=== PATIENT | female | born 1955 ===

== ENCOUNTER 2025-01-18 11:30 | Inpatient (IN) | payer OTHER ==
[~2025-01-18] VITALS: Ht 157.5 cm; Wt 76.2 kg
[2025-01-18] MEDS ORDERED: SYNTHROID50 MCG PO (13:23)
[2025-01-18] MEDS ORDERED: SIMVASTATIN5 MG (13:24)
[2025-01-18] MEDS ORDERED: NEURONTIN600 M1 PO (13:24)
[2025-01-18] MEDS ORDERED: KLONOPIN (13:25)
[2025-01-18] MEDS ORDERED: PROTONIX40 MG PO (13:25)
[2025-01-18] MEDS ORDERED: ABATINEX680 MG PO (13:25)
[2025-01-18 13:30] VITALS: BP 128/83
[2025-01-23] MEDS ORDERED: BUPIVACAINE HCL/MPF 0.5% 30ML VIAL ONE (10:32)
[2025-01-23] MEDS ORDERED: LIDOCAINE HCL 1%/EPINEPHRINE 20ML VIAL IJ ONE ×2 (10:32→12:30)
[2025-01-23] MEDS ORDERED: CEFTRIAXONE SODIUM 2,000 MG VIAL ONE (10:32)
[2025-01-23] MEDS ORDERED: METRONIDAZOLE/SODIUM CHLORIDE 500 MG/100 ML PIGGYBACK IV ONE ×3 (10:32→17:12)
[2025-01-23] MEDS ORDERED: ONDANSETRON HCL 2 MG/ML VIAL IV PRN (11:45)
[2025-01-23] MEDS ORDERED: 0.9 % SODIUM CHLORIDE 1,000 ML IV SCH (11:45)
[2025-01-23] MEDS ORDERED: OxyCODONE HCL 5 MG TABLET (ROXICODONE) PO PRN (11:45)
[2025-01-23] MEDS ORDERED: MORPHINE SULFATE 4 MG/ML CARTRIDGE IV PRN (11:45)
[2025-01-23] MEDS ORDERED: DEXTROSE 50 % IN WATER 0.5 G/ML VIAL IV PRN (11:45)
[2025-01-23] MEDS ORDERED: CEFTRIAXONE SODIUM 2,000 MG VIAL IV ONE (12:30)
[2025-01-23] MEDS ORDERED: BUPIVACAINE HCL 30 ML VIAL IJ ONE (12:30)
[2025-01-23] MEDS ORDERED: ACETAMINOPHEN 500 MG GEL..CAP PO SCH (14:00)
[2025-01-23] MEDS ORDERED: MORPHINE SULFATE 4 MG/ML VIAL IV ONE ×2 (15:15→17:20)
[2025-01-23 16:22] LABS: HEMATOCRIT 41.3 % (36.0-45.00); HEMOGLOBIN 13.6 g/dL (12.0-15.00); MEAN CELL VOLUME 88.2 fL (80.00-100.00); MEAN CORPUSCULAR HEMOGLOBIN 29.1 pg (27.00-32.0); PLATELET COUNT 267 K/uL (150-450); RED BLOOD COUNT 4.68 M/uL (4.00-6.00)
[2025-01-23 16:57] LABS: CALCIUM 9.4 mg/dL (8.5-10.1); CREATININE SERUM 0.91 mg/dL (0.55-1.02); GFR 60.94; MAGNESIUM 2.1 mg/dL (1.8-2.4); PHOSPHOROUS 4.3 mg/dL (2.5-4.9); POTASSIUM 4.14 mEq/L (3.5-5.1)
[2025-01-23] MEDS ORDERED: METRONIDAZOLE/SODIUM CHLORIDE 500 MG/100 ML PIGGYBACK IV SCH (17:00)
[2025-01-23] MEDS ORDERED: POLYETHYLENE GLYCOL 3350 17 GM BLIST.PACK PO SCH (17:00)
[2025-01-23] MEDS ORDERED: GABAPENTIN 300 MG CAPSULE PO SCH (17:00)
[2025-01-23] MEDS ORDERED: HYOSCYAMINE SULFATE 0.125 MG TAB.SUBL SL SCH (17:00)
[2025-01-23 20:09] VITALS: BP 144/80; O2SAT 96
[2025-01-23] MEDS ORDERED: FAMOTIDINE/PF 20 MG/2 ML VIAL IV PUSH SCH (21:00)
[2025-01-24] VITALS: BP 123/73; O2SAT 99
[2025-01-24] MEDS ORDERED: LEVOTHYROXINE SODIUM 50 MCG TABLET PO SCH (06:00)
[2025-01-24 06:51] LABS: HEMATOCRIT 38.4 % (36.0-45.00); HEMOGLOBIN 13.1 g/dL (12.0-15.00); MEAN CELL VOLUME 87.2 fL (80.00-100.00); MEAN CORPUSCULAR HEMOGLOBIN 29.7 pg (27.00-32.0); MEAN CORPUSCULAR HGB CONC 34.1 g/dl (32.0-36.0); RED BLOOD COUNT 4.41 M/uL (4.00-6.00); RED CELL DISTRIBUTION WIDTH 13.5 % (11.5-14.5)
[2025-01-24 07:35] LABS: PLATELET COUNT 205 K/uL (150-450)
[2025-01-24 07:42] LABS: ALBUMIN 3.3 gm/dL (3.4-5.0); CALCIUM 8.2 mg/dL (8.5-10.1); CREATININE SERUM 0.68 mg/dL (0.55-1.02); GFR 85.29; MAGNESIUM 1.8 mg/dL (1.8-2.4); PHOSPHOROUS 3.6 mg/dL (2.5-4.9); POTASSIUM 4.07 mEq/L (3.5-5.1)
[2025-01-24 08:00] VITALS: BP 120/73; O2SAT 100
[2025-01-24 16:49] VITALS: BP 111/63; O2SAT 97
[2025-01-24] MEDS ORDERED: ENOXAPARIN SODIUM 40 MG/0.4 ML SYRINGE SUBCUTANEO SCH (17:00)
[2025-01-24 22:39] VITALS: BP 112/73; O2SAT 96
[2025-01-25 01:10] VITALS: BP 100/64; O2SAT 100
[2025-01-25 08:00] VITALS: BP 131/80; O2SAT 96
[2025-01-25] MEDS ORDERED: ENOXAPARIN SODIUM 40 MG/0.4 ML SYRINGE SUBCUTANEO SCH (09:00)
[2025-01-25 16:00] VITALS: BP 100/67; O2SAT 99
[2025-01-26 01:34] VITALS: BP 107/70; O2SAT 97
[2025-01-26 08:00] VITALS: BP 125/80; O2SAT 95
[2025-01-26 12:14] LABS: ALBUMIN 2.9 gm/dL (3.4-5.0); CALCIUM 8.1 mg/dL (8.5-10.1); CREATININE SERUM 0.59 mg/dL (0.55-1.02); GFR 100.48; MAGNESIUM 1.8 mg/dL (1.8-2.4); PHOSPHOROUS 2.6 mg/dL (2.5-4.9); POTASSIUM 4.02 mEq/L (3.5-5.1)
[2025-01-26 12:54] LABS: HEMATOCRIT 34.8 % (36.0-45.00); HEMOGLOBIN 11.9 g/dL (12.0-15.00); MEAN CELL VOLUME 86.2 fL (80.00-100.00); MEAN CORPUSCULAR HEMOGLOBIN 29.4 pg (27.00-32.0); MEAN CORPUSCULAR HGB CONC 34.1 g/dl (32.0-36.0); PLATELET COUNT 205 K/uL (150-450); RED BLOOD COUNT 4.04 M/uL (4.00-6.00); RED CELL DISTRIBUTION WIDTH 13.9 % (11.5-14.5)
[2025-01-26] MEDS ORDERED: PEPCID AC20 MG PO (13:14)
[2025-01-26] MEDS ORDERED: INTESTINEX680 M1 PO (13:14)
[2025-01-26] MEDS ORDERED: TRAM1TAB98 PO (13:14)
== END 2025-01-26 15:16 | disposition home or self-care (01) | DRG 331 ==
LOC: SURH 01-23 07:00 → O/R 01-23 09:07 → SURH 01-23 09:07
PROVIDERS: ADMIT Surgery; ATTEND Surgery
PROC: 0DBP4ZZ Excision of Rectum, Percutaneous Endoscopic Approach (ICD-10-PCS; 2025-01-23)
PROC: 0DJD8ZZ Inspection of Lower Intestinal Tract, Via Natural or Artificial Opening Endoscopic (ICD-10-PCS; 2025-01-23)
PROC: 0DTN4ZZ Resection of Sigmoid Colon, Percutaneous Endoscopic Approach (ICD-10-PCS; principal; 2025-01-23 07:00)
DX: K57.32 Diverticulitis of large intestine without perforation or abscess without bleeding (principal); R59.0 Localized enlarged lymph nodes; K66.0 Peritoneal adhesions (postprocedural) (postinfection); R10.32 Left lower quadrant pain; R19.4 Change in bowel habit